=== PATIENT | female | born 1970 | race American Indian/Alaskan Native ===

== ENCOUNTER 2020-10-27 12:43 | Outpatient (CLI) | payer MEDICAID ==
[2020-10-27 13:21] LABS: ABG Base Excess 0.4 mmol/L (-2.0-3.0); ABG HCO3 24.2 mmol/L (20.0-26.0); ABG Methemoglobin 0.4 % (0.0-1.5); ABG Oxygen Saturation 96.3 % (95.0-99.0); ABG PCO2 36.2 mm Hg; ABG PH 7.442 pH Units (7.350-7.450); ABG PO2 79.4 mm Hg (80.0-90.0)
[2020-10-27 13:24] LABS: Hematocrit 40.6 % (30.3-42.9); Hemoglobin 13.8 gm/dl (10.1-14.3); Mean Corpuscular HGB Conc 34 % (30-34); Mean Corpuscular Volume 77 fl (79-97); Platelet Count 259 K/mm3 (140-440); Red Blood Count 5.28 M/mm3 (3.65-5.03); Red Cell Distribution Width 15.1 % (13.2-15.2)
[2020-10-27 13:34] LABS: INR 0.99 (0.87-1.13); Partial Thromboplastin Time 30.7 Sec. (24.2-36.6)
[2020-10-27 13:48] LABS: Albumin 4.6 g/dL (3.9-5); Calcium 9.6 mg/dL (8.4-10.2)
== END 2020-10-27 12:44 | disposition home or self-care (01) ==
LOC: LAB 12:43
PROVIDERS: ATTEND Internal Medicine
DX: J45.991 Cough variant asthma (principal); I10 Essential (primary) hypertension; E55.9 Vitamin D deficiency, unspecified; N95.1 Menopausal and female climacteric states; Z68.28 Body mass index [BMI] 28.0-28.9, adult
CPT/HCPCS: 36415; 80053; 82803; 83036; 84436; 84443; 85027; 85610; 85730